=== PATIENT | male | born 1950 | race Caucasian/White ===

== ENCOUNTER 2016-11-16 19:35 | Inpatient (IN) ==
--- NOTE | 2016-11-16 20:43 | Diag Imaging Result Doc PS360 ---
EXAM: HEAD W/O CONTRAST HISTORY: AMS TECHNIQUE: Dose reduction protocol COMPARISON: None. FINDINGS: No parenchymal hemorrhage. No epidural or subdural hematoma. No subarachnoid hemorrhage. No mass identified on this noncontrasted exam. There are chronic microvascular ischemic changes. No hydrocephalus. No sinus opacification. IMPRESSION: No hemorrhage. Chronic microvascular ischemic changes. Electronically signed by Rigoberto Perez 11/16/2016 8:41 PM
--- NOTE | 2016-11-16 20:48 | Diag Imaging Result Doc PS360 ---
EXAM: LUMBAR SPINE W/O CONTRAST HISTORY: SEVERE LUMBAR PAIN TECHNIQUE: COMPARISON: None. FINDINGS: There is mild scoliosis. Moderate degenerative changes throughout the lumbar spine. Right-sided pars defect to the L5 vertebra. No compressed fracture. No herniated disc. Moderate atherosclerosis. Retroperitoneal inflammation with small air bubbles along the left side of the aorta and anterior to the L2 and L3 vertebra. No well-defined abscess. IMPRESSION: 1.No fracture. 2.Scoliosis with degenerative changes 3.Left retroperitoneal inflammation with small air bubbles, but no well-defined abscess along the left side of the aorta and anterior to the L2 and L3 vertebra. Electronically signed by Rigoberto Perez 11/16/2016 8:46 PM
--- NOTE | 2016-11-16 20:50 | Diag Imaging Result Doc PS360 ---
EXAM: ANKLE COMPLETE LEFT HISTORY: INJURY TECHNIQUE: Three views COMPARISON: None. FINDINGS: No fracture. No dislocation. IMPRESSION: No acute bony injury. Electronically signed by Rigoberto Perez 11/16/2016 8:48 PM
--- NOTE | 2016-11-16 20:52 | Diag Imaging Result Doc PS360 ---
EXAM: CHEST-PORTABLE HISTORY: AMS TECHNIQUE: COMPARISON: None. FINDINGS: The lungs are well expanded. There are scattered granuloma. The heart is not enlarged. The vessels are not distended. No infiltrates. No pleural effusions identified. IMPRESSION: Negative chest. Electronically signed by Rigoberto Perez 11/16/2016 8:50 PM
[2016-11-16 20:57] LABS: ALLEN TEST YES; BE 8.3 mmoll (-3.0-3.0); BLOOD TYPE ARTERIAL; DRAW SITE R RADIAL; MODALITY ROOM AIR; PCO2(98.6) 39 mmHg (35-45); PO2(98.6) 58 mmHg (60-100); SAMPLE BLOOD; SAO2 94.5 % (95.0-100.0); THB 15.5 g/dL (11.5-17.4); pH(98.6) 7.52 (7.35-7.45)
[2016-11-16 21:28] LABS: URINE MICRO REVIEW NEEDED? NO; URINE SOURCE CLEAN CATCH
[2016-11-16 21:36] LABS: BILIRUBIN URINE NEGATIVE (NEGATIVE); BLOOD URINE LARGE (NEGATIVE); COLOR YELLOW; GLUCOSE URINE NEGATIVE (NEGATIVE); LEUKOCYTES URINE NEGATIVE (NEGATIVE); NITRITE URINE NEGATIVE (NEGATIVE); PROTEIN URINE 100 mg/dL (NEGATIVE); SP GRAVITY URINE 1.024; TURBIDITY URINE CLEAR (CLEAR); UR EPITHELIAL CELLS <10 /HPF (<10); URINE BACTERIA 3+ /HPF; URINE CULTURE NEEDED? YES; URINE RBC 20-40 /HPF (<10); URINE WBC <10 /HPF (<10); UROBILINOGEN URINE 6 mg/dL (NORMAL)
[2016-11-16 21:41] LABS: UR AMPHETAMINES QUAL NONE DETECTED (NONE DETECT); UR BARBITUATES QUAL NONE DETECTED (NONE DETECT); UR BENZODIAZEPIN QUAL NONE DETECTED (NONE DETECT); UR CANNABINOIDS QUAL NONE DETECTED (NONE DETECT); UR COCAINE QUAL NONE DETECTED (NONE DETECT); UR METHADONE QUAL NONE DETECTED (NONE DETECT); UR OPIATES QUAL NONE DETECTED (NONE DETECT); UR OXYCODONE QUAL NONE DETECTED (NONE DETECT); UR PCP QUAL NONE DETECTED (NONE DETECT)
[2016-11-16] MEDS ORDERED: VANCOMYCIN 1 GM/NS 1 GM/250 ML IVPB IV ONE (21:41)
[2016-11-16] MEDS ORDERED: ZOSYN 3.375 GM/NS 3.375 GM/50 ML IVPB IV ONE (21:41)
[2016-11-16] MEDS ORDERED: NS 1,000 ML IV ONE (21:44)
--- NOTE | 2016-11-16 21:44 | PROVIDER DOCUMENTATION ---
This chart was entered by Ce Rogel Scribe, acting as scribe for Abner Castillo MD. HPI-General Adult - General Chief Complaint: Altered Mental Status Stated Complaint: LOWER BACK PAIN, LT ANKLE PAIN Time Seen by Provider: 11/16/16 19:57 Source: patient Allergies/Adverse Reactions: Patient Allergies Allergy/AdvReac Type Severity Reaction Status Date / Time No Known Allergies Allergy Verified 11/11/16 07:50 Home Medications: Home Medication List Medication Instructions Recorded Confirmed Last Taken Type Cyclobenzaprine [Flexeril] 10 mg PO TID #12 tablet 11/11/16 11/16/16 11/16/16 Rx Tramadol HCl [Ultram] 50 mg PO Q4-6H PRN PRN #24 tablet 11/11/16 11/16/16 Rx Atenolol/Chlorthalidone 1 tab PO DAILY 11/16/16 11/16/16 11/16/16 History [Atenolol-Chlorthalidone 100-25] - History of Present Illness -Gen Adult Nature of Presenting Problems: 66 Y/O M presents to ED with back pain. Pt was seen on the 09 of November and dx with pain meds. Pt states that the pain was worsening within the last 5 days and states that he hasn't been able to get up and has been in severe discomfort. Location of Pain/Injury: reports: back Pain Radiation: reports: no radiation Quality of Pain: reports: aching Severity: reports: severe Onset/Duration: reports: other (8 days ago) Timing: reports: still present, getting worse Context/Activities at Onset: reports: none Associated Symptoms: reports: back/neck pain. denies: chest pain, muscle aches , sinus congestion/drainage Similar Symptoms Previously?: Yes Recently seen or treated by another doctor?: Yes Review of Systems - Adult - REVIEW OF SYSTEMS - ADULT Constitutional: denies: chills, fever Eyes: reports: no symptoms reported Ears, Nose, Mouth & Throat: reports: no symptoms reported Cardiovascular: reports: no symptoms reported Respiratory: denies: cough, shortness of breath Gastrointestinal: reports: no symptoms reported Genitourinary: reports: no symptoms reported Musculoskeletal: reports: back pain, joint pain. denies: bone pain, neck pain Integumentary: reports: no symptoms reported Neurological: reports: no symptoms reported Psychiatric: reports: no symptoms reported Endocrine: reports: no symptoms reported Hematologic/Lymphatic: reports: no symptoms reported Allergic/Immunologic: reports: no symptoms reported All Other Systems: Reviewed and Negative Past History - Adult - PAST MEDICAL HISTORY-ADULT Review of Records: reports: Old Records Reviewed, Nursing Assessment Review, Medications Reviewed, Social history reviewed & non-contributory. 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 negative: moist mucous membranes - NECK Neck: full range of motion, supple - RESPIRATORY Respiratory: lungs clear, normal breath sounds - CARDIOVASCULAR Cardiovascular: normal peripheral pulses, regular rate, rhythm - GASTROINTESTINAL (ABDOMEN) Abdominal Exam: non tender, soft - LYMPHATIC Lymphatic: no adenopathy - MUSCULOSKELETAL Back Exam: no CVA tenderness, decreased range of motion, vertebral tenderness Extremity: normal range of motion. negative: normal gait - SKIN Integumentary: normal color, normal turgor - PSYCHIATRIC Psych/Mental Status: normal mood/affect, normal thought content, normal thought process, oriented x 3 Progress - PLAN OF CARE/RESULTS Progress/Plan/Lab Results: Vital Signs - 8 hr 11/16/16 19:47 Temperature 99.7 F H Pulse Rate 89 Respiratory Rate 17 Blood Pressure 136/86 O2 Sat by Pulse Oximetry 100 Laboratory Results - last 24 hr 11/16/16 20:50 Specimen Type ARTERIAL Sample Site R RADIAL pH 7.52 H pCO2 39 pO2 58 L HCO3 31.2 H Base Excess 8.3 H Oxyhemoglobin 91.8 L ABG O2 Sat (Calculated) 20.0 ABG O2 Saturation 94.5 L ABG Carboxyhemoglobin 1.80 ABG Methemoglobin 1.0 See Test YES A-a O2 Difference 43.0 Total Hemoglobin 15.5 Lactate 1.60 Blood Gas Modality ROOM AIR FiO2 % 21.0 Orders Category Date Time Status Cardiac Monitoring DIRECTED Care 11/16/16 20:03 Active Finger Stick Blood Sugar (ED) DIRECTED Care 11/16/16 20:03 Active Oxygen Therapy- ED Nursing DIRECTED Care 11/16/16 20:03 Active Saline Loc NOW Care 11/16/16 20:03 Active ANKLE COMPLETE LEFT [RAD] Stat Exams 11/16/16 20:35 Completed CHEST-PORTABLE [RAD] Stat Exams 11/16/16 20:03 Completed HEAD W/O CONTRAST [CT] Stat Exams 11/16/16 20:04 Completed LUMBAR SPINE W/O CONTRAST [CT] Stat Exams 11/16/16 20:04 Completed ABG [RESP] Routine Lab 11/16/16 20:50 Completed ALCOHOL BLOOD Stat Lab 11/16/16 20:10 Ordered CBC WITH ELECTRONIC DIFF [HEME] Stat Lab 11/16/16 20:10 Ordered CK PROFILE [SP CHEM] Stat Lab 11/16/16 20:10 Ordered COMPREHENSIVE METABOLIC PANEL [CHEM] Stat Lab 11/16/16 20:10 Ordered PROTIME WITH INR [COAG] Stat Lab 11/16/16 20:10 Ordered PTT [COAG] Stat Lab 11/16/16 20:10 Ordered TROPONIN T Stat Lab 11/16/16 20:10 Ordered URINALYSIS W/POSS RFLX CULT [URINALYSIS] Stat Lab 11/16/16 19:52 Uncollected URINE DRUG SCREEN Stat Lab 11/16/16 20:03 Uncollected Pulse Oximetry Stat Oth 11/16/16 20:03 Active EKG [EKG] Stat Ther 11/16/16 20:03 Ordered - XRAY 1 XRAY Study: Chest Impression: Normal XRAY Interpretation: NAD 2 XRAY: Left XRAY Study: Ankle Impression: Normal XRAY Interpretation: No fx - CT/MRI 1 CT Study: Head Impression: Normal CT Results: microvascular changes otherwise normal 2 CT Study: Lumbar Spine Impression: Abnormal (1. No fx 2. scolisosis with degenrative changes 3. left retroperitoneal inflammation with small air bubbles, but no well-defined abscess along the left side of the aorta and anterior to the l2 and l3 vertebra) CT Results: See Notes - CONSULTS/PCP/HOSPITALIST Notification #1 *Consult/PCP/Hospitalist*: Time Discussed: 21:32 Reason/Comments: Admit Consult Disposition: Admit (Admit Accepted) Departure - Departure Date of Disposition Decision: 11/16/16 Time of Disposition Decision: 21:42 DIAGNOSIS: Retroperitoneal abscess Disposition: ADMITTED INPATIENT 09 Certified Medical Emergency: Emergent Condition: Good Referrals and Follow-Ups: None,PCP [Primary Care Provider] - - Critical Care Note This patient required my direct & personal management of CC.: No This chart was documented by the indicated scribe, (Ce Rogel Scribe) and accurately reflects the services I performed and decisions made by me, Abner Castillo MD, as attested by the provider's signature.
[2016-11-16] MEDS ORDERED: VANCOMYCIN 500 MG/NS 500 MG/100 ML IVPB IV ONE ×2 (22:00→23:00)
[2016-11-16 22:04] LABS: BASO% 0.5 % (0.0-0.8); EOS# 0.01 X1000 (0.0-0.7); EOS% 0.1 % (0.0-10.0); HEMATOCRIT 42.2 % (42.0-52.0); IMM GRAN# 0.07 X1000 (0.0-0.04); IMM GRAN% 0.7 % (0.0-0.5); LYMPH# 1.09 X1000 (1.2-3.4); LYMPH% 10.2 % (20.5-51.1); MANUAL DIFF NEEDED? NO; MCH 32.5 PG (27-31); MCHC 35.5 g/dL (33-37); MCV 91.5 FL (81-99); MONO# 1.86 X1000 (0.11-0.59); MONO% 17.5 % (1.7-9.3); MPV 11.5 FL (7.4-10.4); PLT 243 X1000 (130-400); RBC 4.61 XMIL (4.7-6.1)
[2016-11-16 22:10] LABS: INR 1.05; PROTIME 11.1 Seconds (9.2-11.7); PTT 29.2 Seconds (22.0-36.0)
[2016-11-16 22:13] LABS: AGAP 17; ALBUMIN 3.4 g/dL (3.5-5.0); ALKALINE PHOSPHATASE 55 U/L (32-122); BUN 21 mg/dL (8-22); CALCIUM 8.8 mg/dL (8.8-10.2); CHLORIDE 90 mmol/L (98-107); CK PROFILE 146 U/L (24-204); COSMO 274; GOT 46 U/L (10-34); GPT 29 U/L (10-44); POTASSIUM 3.1 mmol/L (3.5-5.1); SODIUM 134 mmol/L (136-145); TCO2 27 mmol/L (25-35); TOTAL BILIRUBIN 1.26 mg/dL (0.20-1.00); TOTAL PROTEIN 7.2 g/dL (6.3-8.3)
[2016-11-16] MEDS ORDERED: KLOR-CON PO ONE (23:32)
--- NOTE | 2016-11-17 00:23 | HISTORY AND PHYSICAL ---
PRIMARY CARE PROVIDER: Dr. Kieran Nice. CHIEF COMPLAINT: Back pain and hallucinations. HISTORY OF PRESENT ILLNESS: Mr. Elton Cabrera is a 66-year-old male with a medical history of hypertension and GERD who states since November 09 he has been having back pain with associated fevers and chills. He most recently about 5 days ago was started on Flexeril and Ultram and states he has been having hallucinations ever since but continued to take it. His back pain is lower and it is all the way across from left to right. It does not radiate anywhere else, it hurts worse when he sits up. When he lays down it makes it feel better. He denies any burning with urination although the urinalysis appears to be positive for urinary tract infection. The hallucinations he states he feels like he is watching a football game on the ceiling. Upon evaluation his white count was normal but he did have a mild low-grade fever of 99.7. Imaging revealed on the lumbar spine CT showed that he had a left retroperitoneal inflammation with small air bubbles but no well defined abscess along the left side of the aorta and anterior to the L2 and L3 vertebra so no obvious well-defined abscess but it appears to be inflammation likely infection. He also is found to have urinary tract infection. Will admit to the medical floor. Hold all medications that can cause hallucinations, give INTRAVENOUS negative and gram positive coverage antibiotics and consult infectious disease for further recommendations. PAST MEDICAL HISTORY: Hypertension, GERD, skin cancer. SURGICAL HISTORY: Right eye glass extraction, he can still see with his right eye, he has also had a left knee arthroscopic exam. SOCIAL HISTORY: Denies tobacco, quit drinking alcohol 24 years ago and quit illicit drug use 24 years ago. 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 FAMILY HISTORY: None. REVIEW OF SYSTEMS: Fourteen point review of systems were complete and all were negative except for those mentioned above HPI. ALLERGIES: No known drug allergies. HOME MEDICATIONS: Atenolol, chlorthalidone 1 tab p.o. daily, Flexeril 10 mg p.o. t.i.d., Ultram 50 mg p.o. every 4-6 hours p.r.n. PHYSICAL EXAMINATION: VITAL SIGNS: Temperature is 99.7 degrees, heart rate 89, respiratory rate 17, blood pressure 136/86, O2 saturation 100% on room air, 5 feet 8 inches tall, 215 pounds, BMI 32.7. GENERAL: Mr. Elton Cabrera is a 66-year-old male, he is in no acute distress. He is able answer questions appropriately despite having hallucinations. HEENT: Atraumatic, normocephalic. Right pupil is abnormal secondary to surgery in the past. Left pupil reactive. Extraocular movements were intact. Mucous membranes are dry. NECK: No JVD or carotid bruits noted. CARDIOVASCULAR: S1, S2. Regular rate and rhythm. No rubs, gallops, murmurs. PULMONARY: Clear to auscultate and decreased in the bases anterior posteriorly, there was some mild crepitations bilateral bases. SKIN: Warm, dry, intact. NEURO: Oriented x4. Moves all extremities equally PSYCHIATRIC: He was hallucinating that there was a football game going on the ceiling. EXTREMITIES: +2 dorsalis and radial pulses. LABORATORY DATA: White blood cells 10,000, hemoglobin 15, hematocrit 42, platelet count 243,000. INR is 1.05, PTT 29.2, pH 7.52, pCO2 39, PO2 58, bicarbonate 31, base excess 8.3, oxyhemoglobin 91.8%, lactate 1.6. This was on room air. Sodium 134, potassium 3.1, BUN 21, creatinine is 1.1, glucose 145, bilirubin 1.26, AST 46, ALT 29, CK 146, troponin less than 0.01, albumin 3.4. Urinalysis 100 protein, large blood, 20 to 40 red blood cells, 3+ bacteria. Urine drug screen negative. Alcohol level 0. IMAGING: Chest x-ray negative for any acute findings. Head CT no hemorrhage, chronic microvascular ischemic changes. Lumbar spine CT no fracture, scoliosis with degenerative changes and left retroperitoneal inflammation with small air bubbles but no well-defined abscess along the left side of the aorta and anterior to the L2 and L3 vertebra, left ankle no fracture or dislocation. ASSESSMENT AND PLAN: 1. Left retroperitoneal inflammation with small air bubbles, no abscess yet. White blood cell count normal but he is mildly febrile at 99.7. Blood cultures have been obtained. Will start on broad-spectrum antibiotics, vancomycin and Zosyn. 2. Hypertension. Continue home medications. 3. Urinary tract infection. Again taking gram-negative coverage Zosyn but denies any complaints of dysuria or foul smelling urine. 4. Gastroesophageal reflux disease. Continue proton pump inhibitor. 5. Hyperbilirubinemia. Could be secondary to dehydration. He will receive IV fluids for hydration. 6. Mild hypoxemia, PO2 is 58 with a saturation of 91%. Will add nasal cannula oxygen and turn, cough, deep breathe. 7. Hypokalemia. Will give a 1 time dose of potassium supplementation. Dictated by RONALD Arthur for Sloan Leroy MD cc: MD Sloan Orozco MD
[2016-11-17] MEDS ORDERED: ZOFRAN IV PRN (01:03)
[2016-11-17] MEDS ORDERED: VANCOMYCIN IV PER PHARMACY MISC SCH ×2 (01:03→14:45)
[2016-11-17] MEDS: NS 1,000 ML IV SCH ×2 (01:46→18:20)
[2016-11-17] MEDS: ZOSYN 3.375 GM/NS 3.375 GM/50 ML IVPB IV SCH ×4 (05:16→21:15)
[2016-11-17 06:16] LABS: AGAP 14; ALKALINE PHOSPHATASE 53 U/L (32-122); BUN 18 mg/dL (8-22); CALCIUM 8.2 mg/dL (8.8-10.2); CHLORIDE 93 mmol/L (98-107); COSMO 274; GOT 33 U/L (10-34); GPT 28 U/L (10-44); MAGNESIUM 1.9 mg/dL (1.5-2.7); POTASSIUM 2.8 mmol/L (3.5-5.1); SODIUM 136 mmol/L (136-145); TCO2 29 mmol/L (25-35); TOTAL BILIRUBIN 1.27 mg/dL (0.20-1.00); TOTAL PROTEIN 6.5 g/dL (6.3-8.3)
[2016-11-17 06:18] LABS: INR 1.12; PROTIME 11.8 Seconds (9.2-11.7); PTT 27.3 Seconds (22.0-36.0)
[2016-11-17 06:20] LABS: BASO% 0.7 % (0.0-0.8); EOS# 0.02 X1000 (0.0-0.7); EOS% 0.2 % (0.0-10.0); HEMATOCRIT 40.5 % (42.0-52.0); HEMOGLOBIN 14.2 g/dL (14.0-18.0); IMM GRAN# 0.08 X1000 (0.0-0.04); IMM GRAN% 0.7 % (0.0-0.5); LYMPH# 1.37 X1000 (1.2-3.4); LYMPH% 12.8 % (20.5-51.1); MANUAL DIFF NEEDED? YES; MCH 32.4 PG (27-31); MCHC 35.1 g/dL (33-37); MCV 92.5 FL (81-99); MONO# 1.98 X1000 (0.11-0.59); MONO% 18.6 % (1.7-9.3); PLT 223 X1000 (130-400); RBC 4.38 XMIL (4.7-6.1)
[2016-11-17 07:43] LABS: BANDS 8 % (0-1); LYMPHS 22 % (21-51); MONO 18 % (1-9)
[2016-11-17] MEDS ORDERED: KLOR-CON PO ONE (08:57)
[2016-11-17] MEDS ORDERED: ATENOLOL PO SCH (09:00)
[2016-11-17] MEDS ORDERED: CHLORTHALIDONE PO SCH (09:00)
[2016-11-17] MEDS: PRILOSEC PO SCH ×3 (09:18→20:02)
[2016-11-17] MEDS: TENORMIN PO SCH (09:19)
[2016-11-17] MEDS: HYGROTON PO SCH (09:20)
--- NOTE | 2016-11-17 09:41 | CONSULTATION ---
DATE OF CONSULTATION: 11/17/2016 CONCLUSION: The patient appears to have a urinary tract infection. Associated with this, there is inflammation including gas bubbles in the left retroperitoneal area. I think most likely this is from the patient's urinary tract infection with involvement of the left kidney. RECOMMENDATIONS: I agree with treating the patient with Zosyn, and I think we can discontinue vancomycin because of gram-positive coccal urinary tract infections such as Staph aureus or streptococcal urinary tract infection would be unusual. For tomorrow, I have ordered a CT scan of the abdomen and pelvis with and without contrast to see if we can find the exact cause of the left retroperitoneal inflammation and to exclude other types of pathology such as something from the bowel causing the retroperitoneal inflammation. I want to do the CAT scan tomorrow because the patient already has had contrast studies done late last night and, he has been on vancomycin both of which can affect that kidney function and I would like to give the patient a day off of having any renal toxicity before we do the next CT scan which would involve giving IV contrast. DISCUSSION: The patient approximately 8 weeks ago developed low back pain. When he urinated, the back pain radiated to the front of him in the lower part of his abdomen. Also, the patient had the onset of left ankle swelling and pain. He does not remember having any trauma to the ankle. The patient's laboratory studies thus far. His CBC shows a white count of 10,670. Hemoglobin 14.2 and platelet count 223,000. Creatinine is 1. GFR is greater than 60. Liver function studies are normal except for a bilirubin of 1.2. Blood and urine cultures are pending. Urinalysis showed bacteria but no white cells. Chest x-ray was clear. CT scan of the head showed chronic microvascular ischemic changes. X-ray of the ankle showed no acute disease. CT scan of the lumbar spine showed left retroperitoneal inflammation including gas bubbles in the area. The patient when he initially came in the hospital was having hallucinations but , when I am seeing him now, he seems to be oriented and not hallucinating. PAST MEDICAL HISTORY/REVIEW OF SYSTEMS: Eyes and Ears: He does not have any trouble hearing or seeing. Neck: No stiffness. Respiratory: No cough or shortness of breath. Cardiovascular: No chest pain or palpitations. Gastrointestinal: No nausea, vomiting, or diarrhea. Genitourinary: See present illness. Bones, joints, muscles: See present illness about the patient's ankle but no other joint problems. Endocrine: The patient does not have diabetes or thyroid disease. Integument: No rashes. The remainder the patient's review of systems was completed and was negative. PREVIOUS HOSPITALIZATIONS AND OPERATIONS: He has had right eye glass extraction. He also has had arthroscopic surgery on his left knee. MEDICAL DISEASES: Negative for hypertension, gastroesophageal reflux disease, and skin cancer. INFECTIOUS DISEASE HISTORY: Negative for pneumonia and UTI. SOCIAL HISTORY: Patient is single. He lives alone. He stopped smoking cigarettes, drinking alcoholic using illicit drugs 24 years ago. He does not have any pets at home. FAMILY HISTORY: Positive for myocardial infarction and stroke. PHYSICAL EXAMINATION: Vital Signs: Temperature is 98.1 degrees, pulse 72, respirations 16, blood pressure 167/96. Patient's weight is listed at 220 pounds. General: This is an obese, elderly male. He is in no acute distress. Head, eyes, ears, nose, and throat: He can hear my spoken words is spoken words and see near objects. No white patches on the tongue were noted. Neck: No meningismus. Thorax: There was some increased AP diameter to the chest. Lungs : Clear to auscultation. Cardiovascular: Heart rate is regular. Peripheral pulses are palpable. Abdomen: Abdomen and flank soft and nontender. Neurologic: Patient is alert. He can move his extremities. There is no tremor. His sensation is intact to touch. His memory , as regarding his medical history is intact. Integument: No rash noted. Bones, joints, muscles: The patient's left ankle was not swollen but when he moved his ankle it was slightly fender. Thank you for the consult. cc: Clint Jones MD [facility]
--- NOTE | 2016-11-17 12:46 | PROGRESS NOTE ---
DATE: 11/17/2016 SUBJECTIVE: The patient complains of lower back pain. He has no abdominal pain or nausea. OBJECTIVE: Vital Signs: Temperature 98, blood pressure 139/66, heart rate 72, respirations 18, O2 saturations 98% on room air. General: This is an elderly male, lying in bed, in no acute distress. Head: Normocephalic, atraumatic. Heart: S1, S2 normal. Regular rate and rhythm. Lungs: Clear to auscultation bilaterally. No wheezing. No rales. No rhonchi. Abdomen: Positive bowel sounds. Soft, nontender, nondistended. Extremities: No edema. No cyanosis. No calf tenderness. Neurologic: The patient is alert and oriented x3. LABS: White blood cell count 10, hemoglobin 14, hematocrit 40, platelets 223. INR 1.1. Glucose 101, sodium 136, potassium 2.8. Chloride 93, CO2 of 29. BUN 18, creatinine 1. ASSESSMENT AND PLAN: 1. Possible pyelonephritis. Dr. Jones is following and has ordered a CT of the abdomen and pelvis to be done tomorrow. Continue on the current IV antibiotic regimen. 2. Hypertension. Controlled. 3. Hypokalemia. Will replace the patient's potassium. 4. Morbid obesity. Aware. 5. Benign prostatic hypertrophy. Continue on Flomax. cc: Mercedes Carson MD
[2016-11-17] MEDS: FLOMAX PO SCH ×2 (19:56→20:02)
[2016-11-17] MEDS ORDERED: VANCOMYCIN 1.5 GM in NS 250 ML IV SCH ×4 (22:00)
[2016-11-18] MEDS: ZOSYN 3.375 GM/NS 3.375 GM/50 ML IVPB IV SCH (04:15)
[2016-11-18 06:22] LABS: BASO% 0.6 % (0.0-0.8); EOS# 0.03 X1000 (0.0-0.7); EOS% 0.3 % (0.0-10.0); HEMATOCRIT 39.5 % (42.0-52.0); HEMOGLOBIN 14.1 g/dL (14.0-18.0); IMM GRAN# 0.08 X1000 (0.0-0.04); IMM GRAN% 0.7 % (0.0-0.5); LYMPH# 1.25 X1000 (1.2-3.4); LYMPH% 10.7 % (20.5-51.1); MANUAL DIFF NEEDED? YES; MCH 32.8 PG (27-31); MCHC 35.7 g/dL (33-37); MCV 91.9 FL (81-99); MONO# 2.07 X1000 (0.11-0.59); MONO% 17.7 % (1.7-9.3); MPV 11.1 FL (7.4-10.4); PLT 274 X1000 (130-400)
[2016-11-18 06:34] LABS: AGAP 14; ALBUMIN 2.8 g/dL (3.5-5.0); BUN 18 mg/dL (8-22); CALCIUM 8.3 mg/dL (8.8-10.2); CHLORIDE 95 mmol/L (98-107); COSMO 274; MAGNESIUM 1.9 mg/dL (1.5-2.7); POTASSIUM 2.8 mmol/L (3.5-5.1); SODIUM 136 mmol/L (136-145); TCO2 27 mmol/L (25-35)
[2016-11-18 07:21] LABS: BANDS 10 % (0-1); LYMPHS 14 % (21-51); MONO 10 % (1-9)
[2016-11-18] MEDS ORDERED: VANCOMYCIN IV PER PHARMACY MISC SCH (08:00)
--- NOTE | 2016-11-18 08:30 | PROGRESS NOTE ---
DATE: 11/18/2016 PRESENT ILLNESS: The patient is being treated for what I think is a urinary tract infection, and I think that is what is causing the inflammation in the retroperitoneal area and also the air bubbles. Yesterday, I stopped the vancomycin because I thought that most likely the urinary tract infection would be due to a gram-negative miki. However, the blood cultures today are growing gram positive cocci. Therefore, I have gone ahead and restarted vancomycin. I have discontinued Zosyn since vancomycin provides good coverage for most any gram positive coccus. MEDICATIONS: As mentioned above, I have stopped Zosyn and restarted the patient on vancomycin. PHYSICAL EXAMINATION: Vital Signs: Temperature is 98.7 degrees, pulse 71, respirations 16, blood pressure 152/77. General: The patient looks to be doing well. He is in no acute distress. He tells me that when he urinates he does not have the pain that he previously had. Lungs clear to auscultation. Cardiovascular: Regular heart rate. Abdomen and flank soft and nontender. Neurologic: The patient is alert. He can move his extremities. LABORATORY DATA AND X-RAY: The patient's CBC shows a white count of 11,670. Hemoglobin 14.1 and platelet count 274,000. Creatinine is 1.0. GFR is greater than 60. Blood cultures growing gram positive cocci. The urine culture is pending. ASSESSMENT AND PLAN: As mentioned above, I have restarted vancomycin but discontinued Zosyn. I did not find any comorbidity in the patient except for the fact that the patient is elderly. cc: Clint Jones MD MTDD
--- NOTE | 2016-11-18 08:52 | Diag Imaging Result Doc PS360 ---
ABDOMEN/PELVIS W/WO CONTRAST - 11/18/2016 INDICATION: retroperitoneal inflammation, UTI TECHNIQUE: A CT dose reduction protocol was used. COMPARISON: 11/11/2016, 11/16/2016 FINDINGS: On the noncontrast exam, there are no abnormal calcifications. On the contrast enhanced exam, there is some ill-defined retroperitoneal stranding with fluid density in the left para-aortic space. This is just below the main renal vessels. There is actually an accessory, lower pole left renal artery that passes through this process. This inflammatory process measures about 3.5 x 4.9 cm in AP and lateral dimensions. There is partial encircling of the aorta. The artery is patent. There are numerous bilateral renal cysts. Stable severe hepatic steatosis. The gallbladder appears clear. There may be some trace inflammation at a sigmoid colon diverticulum, at the lateral side of the left psoas muscle and iliopsoas space. See image #95 of the venous series. This may be responsible for the retroperitoneal inflammation. This was not present on the CT of 11/11/2016. The retroperitoneal air visible on the CT from 11/16/2016 is no longer present. There is no extra visceral air at this time. Renal functioning is normal. Urinary bladder, prostate, and rectum are normal. Bones are intact. IMPRESSION: 1. Resolution of the air at the left para-aortic inflammatory area, but otherwise no change. No well-defined fluid collection. 2. Sigmoid colon diverticulitis, which may also explain the retroperitoneal inflammation. Electronically signed by Gary Matamoros 11/18/2016 8:50 AM
[2016-11-18] MEDS: TENORMIN PO SCH (09:22)
[2016-11-18] MEDS: PRILOSEC PO SCH ×2 (09:23→20:07)
[2016-11-18] MEDS: HYGROTON PO SCH (09:23)
[2016-11-18] MEDS ORDERED: NS 500 ML ONE (12:11)
[2016-11-18] MEDS: POTASSIUM CHLORIDE 60 MEQ in NS 500 ML IV SCH ×2 (12:13→18:31)
--- NOTE | 2016-11-18 12:43 | PROGRESS NOTE ---
DATE: 11/18/2016 SUBJECTIVE: Patient reports feeling fine but as per family they reported the patient was having some visual hallucinations like seeing some termites on the wall of the room. Patient now he is not experiencing any of those. No abdominal pain. No nausea or vomiting. OBJECTIVE: The.Vital Signs: Temperature 98.7 degrees, heart rate 71, respiratory rate 16, blood pressure 152/77, O2 saturation 95% on room air. General Examination: This is a 66-year-old male, lying in bed, in no acute distress. HEENT: Head is normocephalic, atraumatic. Anicteric sclerae and pale conjunctivae. Mucous membranes moist. Neck: Supple. No JVD noted. No carotid bruits. No lymphadenopathy. No thyromegaly. Cardiovascular: S1, S2 heard. No murmurs, gallops, or rubs. Regular rate and rhythm. Respiratory: Clear bilaterally to auscultation. No work of breathing or using accessory muscles. Abdomen: Soft, nontender to palpation. Bowel sounds present. No organomegaly. Extremities: No clubbing, cyanosis, or edema. Peripheral pulses present in both legs. Neurological: Patient alert and oriented x3. Able to move 4 extremities. Cranial nerves 2-12 grossly normal. LABORATORY DATA: White cell count 11.67, hemoglobin 14.1, hematocrit 39.5, platelets 274,000. BMP is remarkable for creatinine 2.8. urinalysis from yesterday. ASSESSMENT AND PLAN: 1. Possible pyelonephritis. There is a CT scan of the abdomen and pelvis that was ordered today which basically shows no presence of air bubbles in the CT and just they described a sigmoid diverticulitis. Dr. Jones from Infectious Disease is following this patient. He thinks that everything is secondary to a urinary tract infection. Because the urine culture and blood cultures reported gram-positive cocci patient is on vancomycin. Patient reports red face when he is receiving vancomycin. Will instruct nurse to administer the medication definitely much less slower. 2. Hypertension. This condition is well controlled. We will continue with the same management. 3. Hypokalemia. Potassium persists to be 2.8. We are going to provide potassium supplementation today and check BMP tomorrow. 4. Morbid obesity, aware. 5. Benign prostatic hypertrophy. We will continue with Flomax. cc: Osmin Saucedo MD
[2016-11-18] MEDS: FLOMAX PO SCH (20:07)
[2016-11-18] MEDS ORDERED: VANCOMYCIN 1.5 GM in NS 250 ML IV SCH (22:00)
[2016-11-19 06:37] LABS: BASO% 0.6 % (0.0-0.8); EOS# 0.08 X1000 (0.0-0.7); EOS% 0.6 % (0.0-10.0); HEMATOCRIT 42.2 % (42.0-52.0); HEMOGLOBIN 14.5 g/dL (14.0-18.0); IMM GRAN# 0.15 X1000 (0.0-0.04); IMM GRAN% 1.2 % (0.0-0.5); LYMPH# 1.74 X1000 (1.2-3.4); LYMPH% 13.5 % (20.5-51.1); MANUAL DIFF NEEDED? YES; MCH 31.9 PG (27-31); MCHC 34.4 g/dL (33-37); MONO# 1.75 X1000 (0.11-0.59); MONO% 13.6 % (1.7-9.3); MPV 11.1 FL (7.4-10.4); NEUT% 70.5 % (42.2-75.2); PLT 314 X1000 (130-400); RBC 4.54 XMIL (4.7-6.1)
[2016-11-19 07:13] LABS: BANDS 8 % (0-1); LYMPHS 10 % (21-51); MONO 2 % (1-9)
[2016-11-19] MEDS: KEFZOL 2 GM/D5W 2 GM/50 ML IVPB IV SCH ×3 (07:57→23:06)
[2016-11-19] MEDS: TENORMIN PO SCH (08:02)
[2016-11-19] MEDS: HYGROTON PO SCH (08:02)
[2016-11-19] MEDS: PRILOSEC PO SCH ×2 (08:02→22:07)
--- NOTE | 2016-11-19 08:04 | PROGRESS NOTE ---
DATE: 11/19/2016 PRESENT ILLNESS: The patient has staph aureus bacteremia. He has gram-positive cocci growing from his urine which most likely will be due to staph aureus, as well. The patient had retroperitoneal inflammation. At first, I thought it was from his urinary tract infection, but now it appears, from the CT scan obtained yesterday, that the patient has sigmoid diverticulitis which could be accounting for the retroperitoneal inflammation and could be the source of the patient's staph bacteremia. Also concerned, with this patient's bacteremia, that endocarditis is present. MEDICATIONS: I have switched the patient from vancomycin to Ancef. PHYSICAL EXAMINATION: Vital signs: Temperature is 98.3, pulse 63, respirations 16, blood pressure 158/86. General: This is a healthy-appearing elderly male. He is in no acute distress. He does complain of low back pain and says it is difficult for him to get up, but yesterday he did by himself. Lungs: Clear to auscultation. Cardiovascular: Regular heart rate. Abdomen: Soft and nontender. Neurologic: The patient is alert. He can move his extremities. LABORATORY AND X-RAY: As mentioned above, CT scan of the abdomen and pelvis showed sigmoid diverticulitis. There also was resolution of the retroperitoneal inflammation. CBC showed a white count of 12,860, hemoglobin 14.5, and platelet count 314,000. Blood cultures grew oxacillin-sensitive staph aureus. Urine culture grew gram-positive cocci. ASSESSMENT AND PLAN: The patient has staph aureus bacteremia possibly originating from either sigmoid diverticulitis or a urinary tract infection. I am concerned that he may have endocarditis. I have switched the patient from vancomycin to Ancef. I have put in a consult for Dr. Rodrigez to see the patient about his sigmoid colon diverticulitis. The patient has never had a colonoscopy, and I think he would need it, if for nothing else, for that reason, but also after his diverticulitis is healed, he may well benefit from having colonoscopy, also. In addition, I am going to get an echocardiogram to look for endocarditis. Finally, I am repeating the patient's blood cultures today, and if they are sterile, I will get a PICC installed and hopefully will be able to send the patient home. Physical Therapy has already been consulted to see the patient for their evaluation and see if they can get him moving better. The patient's comorbidities include the following: The patient is elderly, but other than that, I cannot find a comorbidity. cc: Clint Jones MD
[2016-11-19] MEDS ORDERED: LEVAQUIN 500 MG/D5W 500 MG/100 ML IVPB IV SCH (09:30)
[2016-11-19] MEDS: FLAGYL 500 MG/NS 500 MG/100 ML IVPB IV SCH ×3 (11:31→23:06)
--- NOTE | 2016-11-19 12:15 | PROGRESS NOTE ---
DATE: 11/18/2016 SUBJECTIVE: The patient is fine. According to the family and nursing staff patient is not having any hallucinations today. No abdominal pain. He had 3 episodes of bowel movement today. OBJECTIVE: Vital Signs: Temperature 98.3 degrees, heart rate 66, respiratory rate 18, blood pressure 140/90, O2 saturation 98% on room air. General Examination: This is a 66-year-old male, lying in bed, in no acute distress. HEENT: Head is normocephalic, atraumatic. Anicteric sclerae and pale conjunctivae. Mucous membranes moist. Neck: Supple. No JVD noted. No carotid bruits. No lymphadenopathy. No thyromegaly. Cardiovascular: S1, S2 heard. No murmurs, gallops, or rubs. Regular rate and rhythm. Respiratory: Clear bilaterally to auscultation. No work of breathing or using accessory muscles. Abdomen: Soft. Bowel sounds present. No organomegaly. Minimum tenderness to palpation in the left lower quadrant but there are no signs of peritoneal irritation. Extremities: No clubbing, cyanosis, or edema. Peripheral pulses present in both legs. Neurological: Patient alert and oriented x3. Moves 4 extremities. LABORATORY DATA: White cell count 12.36, hemoglobin 14.5, hematocrit 42.2, platelets at 314,000. There is no BMP from today. ASSESSMENT AND PLAN: 1. Possible pyelonephritis. CT of the abdomen and pelvis, they described some bowel and the CT and also sigmoid diverticulitis. Dr. Jones from Infectious Disease is treating the patient's UTI but he thinks also that he needs to be seen by a GI doctor. A consult for GI has been placed. Also, in the urine and also in the blood he was growing methicillin sensitive Staph aureus so initially the patient was on vancomycin that now was switched to Ancef and we are going to continue with the same management. 2. Hypertension. Blood pressure is definitely well controlled. We will continue with the same management. 3. Hypokalemia. We have not checked BMP today or it has been placed. We will check potassium later today. 4. Morbid obesity, aware. 5. Benign prostatic hypertrophy. We will continue with Flomax. cc: Osmin Saucedo MD
[2016-11-19 13:03] LABS: AGAP 14; BUN 17 mg/dL (8-22); CALCIUM 8.4 mg/dL (8.8-10.2); CHLORIDE 95 mmol/L (98-107); COSMO 274; POTASSIUM 3.2 mmol/L (3.5-5.1); SODIUM 136 mmol/L (136-145); TCO2 27 mmol/L (25-35)
[2016-11-19] MEDS: TYLENOL PO PRN (16:55)
--- NOTE | 2016-11-19 18:12 | CONSULTATION ---
DATE OF CONSULTATION: 11/19/2016 HISTORY OF PRESENT ILLNESS: A 66-year-old male who presented with lower back pain. He was scanned in the emergency department and it showed a para-psoas muscle abscess with some air contained within this. He was admitted to the hospital and started on IV antibiotics. Dr. Rodrigez was consulted. He has felt better since he has been in the hospital. He had another scan that showed resolution of the, but a persistent fluid collection. It is quite small , medially to the kidney adjacent to the aorta, anterior to the psoas muscle. Prior to this, he has been in his usual state of health and denies any fevers, no vomiting, no changes in bowel movements, no bleeding. He has never had a colonoscopy prior. He did develop some fevers, chills with this current episode, but nothing prior to this. MEDICAL HISTORY: Hypertension, gastroesophageal reflux disease and skin cancer. SURGICAL HISTORY: He has had a foreign body extracted from his right diet. Left knee arthroscopic procedure. No other abdominal operations. SOCIAL HISTORY: No tobacco. Quit drinking 24 years ago. No drugs. He is a war . Lives at home. He works as a orthopedics teacher. soccer coach. REVIEW OF SYSTEMS: Ten point negative unless otherwise mentioned in HPI. FAMILY HISTORY: Negative for cancer. MEDICATIONS: Negative for anticoagulant. PHYSICAL EXAMINATION: Vital signs: Temperature is 98.3, pulse 66, blood pressure 140/90. General: He is alert, in no acute distress. HEENT: There is no scleral icterus. There are no cervical masses or scars. Cardiovascular: Normal rate, regular rhythm. Pulmonary: No increased work of breathing on room air. Abdomen: Soft, nontender, nondistended. Back : He has some left lower back pain that he points out but no real tenderness here. Integument: Warm and dry. Extremities: I do not feel any lower extremity edema. LABORATORY: White count is 12, hematocrit 42, platelets 314,000. Creatinine is 1, glucose 103, potassium low at 3.2. IMAGING: CT scan of the abdomen and pelvis performed 11/18 shows resolution of air in the left periaortic fluid collection, it is 3.5 x 4.9 cm. There is questionably some trace inflammation in the sigmoid colon. ASSESSMENT AND PLAN: This is a 66-year-old male with left-sided retroperitoneal parapsoas muscle abscess, unclear of the etiology. He does have positive blood cultures for Staph aureus and urine is positive for Staph aureus. Dr. Jones is following. I have low suspicion this is GI in origin. Would need to rule out hematologic spread. I am not sure if Dr. Jones is planning an echocardiogram. Clinically, I think he is improving and exam is very benign. I think ultimately he will need EGD and colonoscopy as he is 66 and has never had one, but I would hold off at this point, as he is clinically improving and wait at least 6 weeks after this. I do not think he would be amenable to percutaneous drainage right now given the size, but if he were to clinically worsen, a posterior approach drain would be the next step. Otherwise , I do not plan for any surgical intervention. He seems to be on adequate antibiotics. Dr. Jones is following. Other medical management per the hospitalist service. We will continue to follow along. cc: Kyra Key MD [facility]
--- NOTE | 2016-11-19 19:08 | CONSULTATION ---
DATE OF CONSULTATION: 11/19/2016 REQUESTING PHYSICIAN: Osmin Saucedo MD PRIMARY CARE DOCTOR: None. REASON FOR CONSULTATION: Sigmoid diverticulitis and retroperitoneal inflammation. HISTORY OF PRESENT ILLNESS: Mr. Cabrera is a 66-year-old male who was admitted on 11/17/2016 with back pain since November 09 along with fever and chills. He had imaging done which showed evidence of left retroperitoneal inflammation with small air bubbles, but no well-defined abscess was seen. This was noted at L2-L3 vertebrae. He was seen by Dr. Jones who diagnosed him with UTI and he grew Gram positive bacteria, and his blood culture x1 and also grew Gram positive bacteria. He has been on antibiotics per Dr. Jones. Repeat imaging done, abdominal pelvic CT scan on 11/18/2016 with and without contrast showed resolution of the air at the left periaortic inflammatory area, but otherwise no change. No well-defined fluid collection and there was evidence of sigmoid colon diverticulitis which may also explain the retroperitoneal inflammation. The inflammatory process noted in the retroperitoneum around L2-3 measured 3.5 x 4.9 cm and this is partially encircling the aorta. The patient was also noted to have bilateral renal cysts and stable severe hepatic steatosis on imaging. According to the CT report, there was some trace inflammation at sigmoid colon diverticulum at the lateral aspect of the left iliopsoas muscle and iliopsoas space. But there was no evidence of any extravisceral air at that time. Gastroenterology was consulted for possible evaluation of outpatient EGD and colonoscopy once the diverticulitis has healed. The patient has never had EGD and colonoscopy done in the past. PAST MEDICAL HISTORY: 1. Hypertension. 2. GERD. 3. Skin cancer. 4. Occasional constipation. 5. Back pain. 6. New diagnosis of retroperitoneal fluid in L2-L3 with Gram positive bacteremia and positive gram positive UTI being treated with antibiotics per Dr. Jones. PAST SURGICAL HISTORY: 1. Right eye glass extraction. 2. Left knee arthroscopy exam. SOCIAL HISTORY: Denies history of tobacco. He quit drinking about 24 years ago. He quit illicit drug abuse 24 years ago. He lives at home alone. He is a vet. FAMILY HISTORY: Noncontributory. No history of colon cancer. REVIEW OF SYSTEMS: Denies any current fevers, rigors or chills and fevers and chills have improved since starting antibiotics. Denies any chest pain, shortness of breath, dyspnea. Denies any genitourinary complaints, although he was diagnosed with a UTI and is on current antibiotics. Denies any neurologic complaints, although at home he was having some hallucinations with Flexeril and Ultram. He denies any nausea, vomiting, vomiting blood, passing blood in the stools. He does complain of intermittent constipation. ALLERGIES: No known drug allergies. MEDICATIONS AT HOME: Atenolol, chlorthalidone, Flexeril, Ultram. MEDICATIONS IN THE HOSPITAL: Tylenol, atenolol, chlorthalidone, metronidazole 500 mg IV q.6 hours. Cefazolin 2 g IV q.8. Culturelle 1 capsule b.i.d. Levaquin 5 mg IV once daily. Omeprazole 40 mg p.o. b.i.d. Sennoside/docusate 1 tablet p.o. b.i.d. Tamsulosin 0.4 mg p.o. at bedtime. PHYSICAL EXAMINATION: Vital signs: Temperature 97.6 degrees, pulse rate 68, respiratory rate 20, blood pressure 130/80, saturating 98% on room air. Body weight 220 pounds 9 ounces. BMI of 33.5 kg/m2. General Appearance: Obese, sitting in chair in no acute distress. HEENT: No pallor. No icterus. Pupils equal, react to light. Neck: Supple. Chest: Decreased breath sounds. Cardiac: Regular rhythm. No murmur. Abdomen: Soft, nontender. Mild discomfort in the left lower quadrant, but no rebound. No guarding. Bowel sounds are present. Extremities: No cyanosis, clubbing. Neurologic: He is alert, awake, oriented. LABORATORY: Hemoglobin and hematocrit is 14.5, 42.2, white count 12.86, platelet count of 314,000, MCV of 93%, neutrophils of 70.5. PT of 11.8, INR 1.12, PTT of 27.3, sodium 130, potassium 3.2, chloride 95, bicarb 27, anion gap of 14, BUN of 17, creatinine 1, glucose of 103, calcium 8.4, total bilirubin is 1.27, AST 33, ALT 20, alkaline phosphatase 3, CRP is 207.63 total protein 6.5, albumin of 2.8. TSH 1.49, PSA 6.66. His initial AST was 46 and ALT was 29 and total bilirubin is 1.26. Microbiology: Urine culture showed Staph aureus which was pansensitive and patient continued on cefazolin. The blood culture Staph aureus, same species as in the UTI. Likely the source of bacteremia. Blood cultures repeat were done today which are currently pending. C. difficile in stool is negative toxin. IMPRESSION AND PLAN: 1. Urinary tract infection with Staph aureus and Staph aureus bacteremia being treated with cefazolin 2 g IV every [address] Jones. 2. Retroperitoneal inflammation, as mentioned in the HPI CT scan report which is getting better. This could be seeded secondary to bacteremia from Staph aureus, related to urinary tract infection. This needs to be worked up by Urology as an outpatient to figure out the source of possible UTI in this age group. His PSA is normal. 3. Diverticulitis sigmoid colon. In that regard, we will continue him on Levaquin and Flagyl for 7-10 days. We will give him Culturelle 1 capsule p.o. b.i.d. for 6 weeks. 4. The patient will be on a high fiber diet and we will start him on Angie-Colace 1 capsule p.o. b.i.d. to prevent constipation. 5. Gastrointestinal prophylaxis with proton pump inhibitor. 6. Obesity. Patient counseled to lose weight. 7. Fatty liver on the imaging in the CT scan. The patient was again counseled to lose weight. 8. Elevated liver enzymes which could be because of fatty liver, but the patient has history of prior IV drug abuse. We will check hepatitis panel. 9. We will follow along. The patient will follow up in the office in 4 weeks after discharge. At that time, we will plan to do esophagogastroduodenoscopy and colonoscopy. The above discussed with the patient and Dr. Jones. cc: MD Clint Trujillo MD Cesar Garcia-Rodriguez, MD R. Tyler Harney, MD
[2016-11-19] MEDS: FLOMAX PO SCH (22:08)
[2016-11-19] MEDS: PERICOLACE PO SCH (22:08)
[2016-11-19] MEDS: CULTURELLE PO SCH (22:08)
[2016-11-19] MEDS ORDERED: KLOR-CON PO ONE (23:21)
[2016-11-20] MEDS: TYLENOL PO PRN (02:56)
[2016-11-20] MEDS: FLAGYL 500 MG/NS 500 MG/100 ML IVPB IV SCH (04:55)
[2016-11-20] MEDS: KEFZOL 2 GM/D5W 2 GM/50 ML IVPB IV SCH ×2 (06:16→13:57)
[2016-11-20 06:43] LABS: AGAP 12; BUN 17 mg/dL (8-22); CALCIUM 8.1 mg/dL (8.8-10.2); CHLORIDE 98 mmol/L (98-107); COSMO 277; POTASSIUM 3.4 mmol/L (3.5-5.1); SODIUM 138 mmol/L (136-145); TCO2 28 mmol/L (25-35)
[2016-11-20] MEDS: CULTURELLE PO SCH (08:38)
[2016-11-20] MEDS: TENORMIN PO SCH (08:38)
[2016-11-20] MEDS: PRILOSEC PO SCH (08:38)
[2016-11-20] MEDS: PERICOLACE PO SCH (08:38)
[2016-11-20] MEDS: HYGROTON PO SCH (08:39)
--- NOTE | 2016-11-20 08:44 | PROGRESS NOTE ---
DATE: 11/20/2016 PRESENT ILLNESS: The patient has a Staph aureus bacteremia and urinary tract infection. He also has retroperitoneal inflammation, and he also has diverticulitis. Exactly where the different infections arose is somewhat uncertain. He could have had a urinary tract infection which could have caused some retroperitoneal inflammation and then that could have spread to the blood. He may have had Staph aureus bacteremia originated from the diverticulitis which could be causing the retroperitoneal inflammation and then the kidneys could have become infected hematogenously. MEDICATIONS: The patient is on Ancef 2 g IV every [address] Rodrigez had put the patient on Levaquin and Flagyl yesterday for his diverticulitis. Both of these were being given IV. Today, I switched the Levaquin and Flagyl to p.o. just to make sure that the patient can tolerate them because when we discharge him, he will be on those 2 medicines p.o. PHYSICAL EXAMINATION: Vital Signs: Temperature is 97.6 degrees, pulse 59, respirations 20, blood pressure 135/59. General: This is a healthy-appearing but obese elderly male. He is in no acute distress. He has been moving around more and walking in his room. He feels better, and he feels he can go home. Lungs clear to auscultation. Cardiovascular: Regular heart rate. Abdomen and flank: Soft and not tender. Neurologic: Patient is alert. He can move his extremities. LABORATORY DATA AND X-RAY: The patient's urine grew oxacillin sensitive Staph aureus just as it did in the blood. The patient's CBC shows a white count of 12,860. Hemoglobin 14.5 and platelet count 314,000. Creatinine is 1.0. GFR is greater than 60. ASSESSMENT AND PLAN: I plan to treat the patient with IV cefazolin for 2 weeks. This should cover both his bacteremia and his urinary tract infection. Also, I have electronically printed up a prescription for Levaquin and Flagyl for 10 days which the patient will get filled and start on when he is discharged home. I plan to see the patient back in the office in 2 weeks. At 6 weeks, Dr. Rodrigez will be doing a colonoscopy on the patient. Dr. Key saw the patient yesterday possibly about some fluid in the retroperitoneal space. I have paged him this morning. I was going to talk to him about does he feel comfortable sending him home on the Ancef IV and does he think he needs more than 2 weeks; if he does, then possibly we could follow the 2 weeks of Ancef IV with p.o. Keflex. The patient's comorbidity, the only one that I could find, is that he is elderly. I have called the Microbiology Laboratory and told them to call me if the patient's repeat blood cultures are positive. In addition, the patient does have leukocytosis but he is going to be getting his blood drawn every Wednesday while he is on Ancef and, hopefully, after treating the diverticulitis the white count will come down also. Also, I plan to get an echocardiogram on the patient due to the fact that he has had a Staph bacteremia. I will be seeing the patient 2 weeks after discharge, at which time, hopefully, I will stop the Ancef and pull out his PICC. cc: Clint Jones MD
[2016-11-20] MEDS ORDERED: LEVAQUIN PO SCH (09:00)
[2016-11-20 10:53] LABS: HEPATITIS PROFILE ACUTE SEE COMMENTS
--- NOTE | 2016-11-20 12:59 | ECHO REPORT ---
ORDER DATE: 11/19/2016 MEASUREMENTS: Left ventricular end-diastolic diameter 4.7, systolic 3.1. Posterior wall thickness 1.2, septal thickness 1.4, left atrium 3.9, aortic root 3.9 SUMMARY: 1. Fair quality study. Apical views are technically difficult and intravenous echo contrast agent Definity was utilized to enhance endocardial definition for purposes of left ventricular systolic function assessment and wall motion assessment. 2. Trileaflet aortic valve demonstrates very mild sclerosis but opens normally on 2-dimensional images. Mitral, tricuspid and pulmonic valves are without evidence of structural abnormality with very mild mitral regurgitation. There is trace tricuspid regurgitation and trace pulmonic insufficiency. The aortic root is borderline enlarged. 3. Normal left ventricular chamber size with mild concentric left hypertrophy is demonstrated. Estimated left ejection fraction appears to be greater than 55%. No regional wall motion abnormalities are evident. Left atrium, right atrium and right ventricle are normal in size with normal right ventricular systolic function. 4. No pericardial effusion. 5. Appearance of inferior vena cava suggests normal central venous pressure. CONCLUSIONS: 1. Very mild aortic valve sclerosis. 2. Very mild mitral regurgitation. 3. Mild concentric left hypertrophy with estimated left ventricular ejection fraction at least 55%. 4. Borderline aortic root enlargement. cc: MD Clint Uriostegui MD
[2016-11-20] MEDS ORDERED: FLAGYL PO SCH (13:00)
[2016-11-20 13:03] VITALS: BP 146/77
--- NOTE | 2016-11-20 14:10 | PROGRESS NOTE ---
DATE: 11/20/2016 ADDENDUM: ASSESSMENT AND PLAN: I have discussed the patient's case with Dr. Key. He feels that the patient does have a retroperitoneal infection that is actually a retroperitoneal abscess. Because of this, I am going to keep going with his IV Ancef for 3 weeks instead of 2 weeks, and at that time repeat the CAT scan. If the abscess has cleared, then the patient will not need any more antibiotics. If the abscess has gotten a lot smaller, we may either keep going with the IV Ancef until it is completely gone or switch over to p.o. Keflex and continue that until the abscess is gone. cc: Clint Jones MD
--- NOTE | 2016-11-20 15:33 | PROGRESS NOTE ---
DATE: 11/20/2016 SUBJECTIVE: Feels well. Some stiffness in the back but no pain. No fevers. No tachycardia. Vital Signs: Blood pressure 146/77, oxygen saturation 97% on room air. General: He is alert. Cardiovascular: Sinus tach. Abdomen: Soft, nontender, nondistended. Integument: Warm ,dry with no jaundice. LABS: No new labs today other than a creatinine of 1.0 with a potassium up to 3.4, glucose is 102. ASSESSMENT/PLAN: This is a 66-year-old male whose has a staph aureus urinary tract infection, bacteremia and a taina-psoas abscess. Dr. Jones is following and he has made plans for IV antibiotics for 2 weeks with a scan at that point, and likely transition to oral antibiotics. He can see me back at that time and followup his scan. We discussed this plan with the patient and his daughter and they have my contact information and will call me at this point. The plan is for endoscopy at about 6 weeks as he has never had a colonoscopy just to rule out a potential GI etiology although I think this is low likelihood. cc: Kyra Key MD
[2016-11-20] MEDS ORDERED: NS 250 ML ONE (15:49)
[2016-11-20 16:01] LABS: INR 1.18; PROTIME 12.5 Seconds (9.2-11.7)
--- NOTE | 2016-11-20 16:50 | Diag Imaging Result Doc PS360 ---
EXAM: Portable Chest HISTORY: PICC placement TECHNIQUE: Portable upright AP COMPARISON: 11/16/2016 FINDINGS: Interval placement of a left-sided PICC line. The tip overlies the distal superior vena cava. The lungs are well expanded. No cardiomegaly. No pneumonia. No pleural effusions identified. There is a granuloma in the mid left lung. IMPRESSION: The left sided PICC line is in good position. Electronically signed by Rigoberto Perez 11/20/2016 4:47 PM
--- NOTE | 2016-11-20 22:02 | DISCHARGE SUMMARY ---
ADMISSION DATE: 11/16/2016 DISCHARGE DATE: 11/20/2016 CONSULTATIONS: 1. Clint Jones MD with Infectious Disease. 2. Francisco Key MD with General Surgery. 3. Rain Pleitez MD with Gastroenterology. PERTINENT PROCEDURES: 1. Head CT showed no hemorrhage or chronic microvascular ischemic changes. 2. Lumbar spine CT showed no fracture, scoliosis or degenerative changes. Left retroperitoneal inflammation with small air bubbles but no well-defined abscess along the left side of the aorta anterior to the L2-L3 vertebra. 3. Ankle x-ray showed no acute bony injury on the left. 4. Abdomen and pelvis CT showed resolution of the air at the left periaortic inflammatory but otherwise no change, no well-defined fluid collection, sigmoid colon diverticulitis which may also explain retroperitoneal inflammation. DISCHARGE DIAGNOSES: 1. Staphylococcus aureus bacteremia will to be treated with IV antibiotics by Dr. Clint Jones. 2. Urinary tract infection will be treated with IV antibiotics by Dr. Clint Jones. 3. Diverticulitis of the sigmoid colon. Continue with Levaquin and Flagyl p.o. as well as initiate Culturelle and placed the patient on a high-fiber diet. Start Angie-Colace to prevent constipation. 4. Obesity. Patient has been counseled to lose weight. Will follow up with GI in 4 weeks after discharge. Plan to do an EGD and colonoscopy. Also monitoring his hepatitis panel. 5. Retroperitoneal inflammation as seen on CT secondary to his GI issues. Dr. Francisco Key did not think any surgical intervention was necessary. He was on adequate antibiotics. HOSPITAL COURSE: Briefly, Mr. Cabrera is a 66-year-old, male with past medical history of hypertension and GERD who states since November 09 he has been having back pain with associated fever and chills. He most recently about 5 days prior to his admission was started on Flexeril and Ultram. He states that he was having hallucinations ever sense but continued to take it. His back pain is lower. It is all the way across from the left to the right, it does not radiate anywhere and it is worse when he sits up. When he lies down it makes him feel better. He denied any burning with urination although his urinalysis appeared to be positive for UTI. He has hallucinations and states he feels like he was watching a football game on the ceiling. Upon evaluation his white count was normal but he did have a low-grade fever of 99.7. IMAGING STUDIES: A lumbar spine CT showed left retroperitoneal inflammation with small air bubbles but no well-defined abscess. On the left side the aorta is anterior to the ALT, L3 vertebra. He was also found to have a UTI. He was admitted to the medical floor. His Ultram and Flexeril were discontinued. He was given IV negative and gram-positive IV antibiotic coverage and consultation for Infectious Disease. The patient was noted to have a Staph aureus bacteremia as well as a UTI with retroperitoneal inflammation as well as diverticulitis. He is going to be treated with Ancef 2 g IV every q.8 hours at home under [facility]. Dr. Rodrigez saw the patient on Levaquin and Flagyl for his diverticulitis as well as PeriColace to prevent constipation. Dr. Francisco Key is not planning on any surgical intervention. He feels that he is on the appropriate antibiotics and feels that this is more GI in nature. No abscess has been seen on follow-up abdomen and pelvis CT. VITAL SIGNS AT DISCHARGE: Temperature is 97.6 degrees, heart rate 59, respirations 20, blood pressure 135/59, O2 is 98% on room air. DISCHARGE MEDICATIONS: 1. Ancef 2 g IV every [address] Jones. 2. Flagyl 500 mg p.o. t.i.d. 3. Levaquin 500 mg p.o. daily. 4. Flomax 0.4 mg p.o. at bedtime. 5. Chlorthalidone 25 mg p.o. daily. 6. He is on atenolol and chlorthalidone mixture 1 tab p.o. daily. 7. Lactobacillus 1 each p.o. b.i.d. 8. Prilosec 40 mg p.o. b.i.d. for 1 month then 40 mg p.o. daily. FOLLOWUP: The patient is being discharged home with home health and IV antibiotics with [facility] per Dr. Clint Jones. The patient is to continue his full course of IV as well as p.o. antibiotics. He will follow up with Dr. Clint Jones in 3 weeks as well as Dr. Rodrigez in 4 weeks for a colonoscopy and EGD. Follow up with his hepatitis panel and initiate a high-fiber diet and start on angie Colace to prevent constipation. The patient can return to the ED for any worsening of symptoms. TOTAL TIME SPENT ON DISCHARGE: Greater than 30 minutes. Dictated by RONALD Jara for Osmin Saucedo MD cc: Osmin Saucedo MD
== END 2016-11-20 17:55 | disposition home health service (06) ==
LOC: ED 19:35 → 4N 11-17 00:33 → SUATTDRO 11-17 00:33 → 4N 11-17 14:14
PROVIDERS: ATTEND Internal Medicine